=== PATIENT | male | born 1975 | race Caucasian/White ===

== ENCOUNTER 2021-02-05 11:17 | Inpatient (IN) | payer OTHER ==
[2021-02-05 12:56] LABS: BASOPHIL 0.3 % (0-2); EOSINOPHIL 0.2 % (0-5); HCT 45.6 % (42.0-52.0); HGB 15.9 g/dl (13.2-18.0); LYMPHOCYTE 13.5 % (15-48); MCH 34.3 pg (25.0-31.0); MCHC 34.9 g/dL (32.0-36.0); MCV 98.5 fL (78.0-100.0); MONOCYTE 5.9 % (0-12); MPV 8.3 fL (6.0-9.5); NEUTROPHIL 79.8 % (41-80); NRBC 0; PLT 648 K/uL (150-400); RBC 4.63 M/uL (4.70-6.00); RDW 11.9 % (11.5-14.0); WBC 11.8 K/uL (4.0-10.5)
[2021-02-05 13:10] LABS: ALBUMIN 2.6 g/dL (3.4-5.0); BILIRUBIN - TOTAL 0.3 mg/dL (0.2-1.0); BUN/CREAT RATIO (CALC) 8.8 RATIO; CREATININE 0.8 mg/dL (0.67-1.17); GLOBULIN (CALCULATION) 5.4 g/dL
[2021-02-05 13:17] LABS: LACTIC ACID 1.6 mmol/L (0.4-1.9)
[2021-02-06 05:50] LABS: HCT 35.8 % (42.0-52.0); HGB 12.8 g/dl (13.2-18.0); MCH 35.2 pg (25.0-31.0); MCHC 35.8 g/dL (32.0-36.0); MCV 98.4 fL (78.0-100.0); MPV 8.6 fL (6.0-9.5); RBC 3.64 M/uL (4.70-6.00); RDW 11.9 % (11.5-14.0); WBC 14.7 K/uL (4.0-10.5)
[2021-02-06 06:10] LABS: BUN/CREAT RATIO (CALC) 9.4 RATIO; CREATININE 0.85 mg/dL (0.67-1.17); POTASSIUM 3.9 mmol/L (3.5-5.1)
--- NOTE | 2021-02-06 14:01 | NUR ---
02/06/21 Mr. Hernandez lives alone. He is independent in the home and community. Mr. Hernandez works at [employer]. He did not have health coverage or a PCP. The [employer] has enrolled patient in a Medicaid plan. The [facility] company secretary will arrange a PCP appointment. - IV antibiotic treatment will likely be needed following discharge. Mr. Hernandez reports to have transportation. - Mr. Hernandez was educated to the [facility] should his Medicaid . - Mr. Hernandez reports to have been drinking a pint + of bourbon oer day up to 2 weeks ago. He was provided with information re: AA meetings for future reference.
[2021-02-07 08:37] LABS: HCT 35.8 % (42.0-52.0); HGB 12.4 g/dl (13.2-18.0); MCH 34.4 pg (25.0-31.0); MCHC 34.6 g/dL (32.0-36.0); MCV 99.4 fL (78.0-100.0); MPV 8.4 fL (6.0-9.5); RBC 3.6 M/uL (4.70-6.00); RDW 12.1 % (11.5-14.0); WBC 20.4 K/uL (4.0-10.5)
[2021-02-07 08:57] LABS: BUN/CREAT RATIO (CALC) 10.4 RATIO; CREATININE 0.77 mg/dL (0.67-1.17); POTASSIUM 3.8 mmol/L (3.5-5.1)
--- NOTE | 2021-02-07 13:34 | NUR ---
1245 TRANSPOTED BY BED TO SURGERY REPORT GIVEN TO ANGELIQUE
[2021-02-08 04:42] LABS: BASOPHIL 0.3 % (0-2); EOSINOPHIL 0 % (0-5); HCT 39.6 % (42.0-52.0); LYMPHOCYTE 5.1 % (15-48); MCH 34.7 pg (25.0-31.0); MCHC 35.4 g/dL (32.0-36.0); MCV 98.3 fL (78.0-100.0); MONOCYTE 4.3 % (0-12); MPV 8.7 fL (6.0-9.5); NEUTROPHIL 89.4 % (41-80); NRBC 0; PLT 457 K/uL (150-400); RBC 4.03 M/uL (4.70-6.00); RDW 12.2 % (11.5-14.0)
[2021-02-08 04:44] LABS: WBC 23.1 K/uL (4.0-10.5)
[2021-02-08 05:01] LABS: BUN/CREAT RATIO (CALC) 20.2 RATIO; CREATININE 0.99 mg/dL (0.67-1.17); POTASSIUM 4.9 mmol/L (3.5-5.1)
--- NOTE | 2021-02-08 14:39 | NUR ---
02/07/2021 1120 PT HAD A PICC LINE ORDERED, PROCEDURE WAS EXPLAINED TO PT,RISKS AND BENEFITS WERE EXPLAINED TO PT. CONSENT WAS SIGNED. PT'S LEFT UPPER ARM BASILIC VEIN WAS VISUALIZED USING THE [employer] ULTRA SOUND MACHINE . PT WAS THEN PREPPED AND DRAPED IN STERILE MANNER. THE AREA WAS CLEANSED WITH CHLOROPREP. THE AREA WAS NUMBED WITH 1% LIDOCAINE 1 CC. A 21G GUIDE NEEDLE WAS USED. ATTEMPTED TO THREAD THE GUIDE WIRE THROUGH THE GUIDE NEEDLE WITHOUT SUCCESS, THIS WAS ATTEMPTED 2 MORE TIMES IN LEFT UPPER ARM WITHOUT SUCCESS, THE PROCEDURE HAD TO BE D/LEONID DUE TO THE PATIENT BEING TAKEN TO SURGERY. DR. HAJI AWARE OF THIS.
[2021-02-09 06:08] LABS: BASOPHIL 0.2 % (0-2); HCT 32.8 % (42.0-52.0); HGB 11.5 g/dl (13.2-18.0); LYMPHOCYTE 10.2 % (15-48); MCH 34.7 pg (25.0-31.0); MCHC 35.1 g/dL (32.0-36.0); MCV 99.1 fL (78.0-100.0); MONOCYTE 7.2 % (0-12); MPV 8.5 fL (6.0-9.5); NEUTROPHIL 80.7 % (41-80); NRBC 0; PLT 451 K/uL (150-400); RBC 3.31 M/uL (4.70-6.00); RDW 12.4 % (11.5-14.0); WBC 11.9 K/uL (4.0-10.5)
[2021-02-09 06:58] LABS: BUN/CREAT RATIO (CALC) 27.9 RATIO; CREATININE 0.68 mg/dL (0.67-1.17); POTASSIUM 4.4 mmol/L (3.5-5.1)
--- NOTE | 2021-02-10 00:17 | NUR ---
2315 REPORT RECEIVED FROM Brendon NEWELL RN.
--- NOTE | 2021-02-10 03:57 | NUR ---
0336 MORPHINE 30 ML JEWELRY DRILLING MACHINE OPERATOR CARTRIDGE CRACKED AND WASTED WITH Lupis WHITT RN. FANI LOG CHECK SCALER NOTIFIED AND WASTED IN PYXIS. CARTRIDGE SCANNED PRIOR TO WASTING.
[2021-02-10 08:29] LABS: HGB 12.1 g/dl (13.2-18.0); MCH 34.6 pg (25.0-31.0); MCHC 34.6 g/dL (32.0-36.0); MPV 8.2 fL (6.0-9.5); RBC 3.5 M/uL (4.70-6.00); RDW 12.5 % (11.5-14.0); WBC 14.8 K/uL (4.0-10.5)
[2021-02-10 08:51] LABS: BUN/CREAT RATIO (CALC) 22.6 RATIO; CREATININE 0.53 mg/dL (0.67-1.17); POTASSIUM 3.6 mmol/L (3.5-5.1)
--- NOTE | 2021-02-11 11:24 | NUR ---
1124 NG TUBE DC'D AT THIS TIME, PT TOLERATED WELL.
--- NOTE | 2021-02-11 12:30 | NUR ---
1210 PT AMBULATED DOWN SALAZAR WITH WALKER AND STANDBY ASSIST OF 1. TOLERATED WELL. PT IS SITTING IN CHAIR IN HIS ROOM AT THIS TIME.
[2021-02-12 05:43] LABS: BASOPHIL 0.3 % (0-2); HCT 35.9 % (42.0-52.0); HGB 12.3 g/dl (13.2-18.0); LYMPHOCYTE 9.8 % (15-48); MCH 34.2 pg (25.0-31.0); MCHC 34.3 g/dL (32.0-36.0); MCV 99.7 fL (78.0-100.0); MONOCYTE 6.4 % (0-12); MPV 8.3 fL (6.0-9.5); NEUTROPHIL 80.8 % (41-80); NRBC 0; PLT 511 K/uL (150-400); RDW 12.4 % (11.5-14.0); WBC 14.9 K/uL (4.0-10.5)
[2021-02-12 06:03] LABS: ALBUMIN 1.4 g/dL (3.4-5.0); BILIRUBIN - TOTAL 0.5 mg/dL (0.2-1.0); BUN/CREAT RATIO (CALC) 15.8 RATIO; CREATININE 0.57 mg/dL (0.67-1.17); GLOBULIN (CALCULATION) 4.3 g/dL; TOTAL PROTEIN 5.7 g/dL (6.4-8.2)
[2021-02-13 06:21] LABS: BASOPHIL 0.3 % (0-2); EOSINOPHIL 2.9 % (0-5); HCT 34.5 % (42.0-52.0); HGB 11.9 g/dl (13.2-18.0); LYMPHOCYTE 13.9 % (15-48); MCH 34.5 pg (25.0-31.0); MCHC 34.5 g/dL (32.0-36.0); MONOCYTE 7.4 % (0-12); MPV 8.6 fL (6.0-9.5); NRBC 0; PLT 508 K/uL (150-400); RBC 3.45 M/uL (4.70-6.00); RDW 12.6 % (11.5-14.0); WBC 12.1 K/uL (4.0-10.5)
[2021-02-13 06:37] LABS: ALBUMIN 1.3 g/dL (3.4-5.0); BILIRUBIN - TOTAL 0.5 mg/dL (0.2-1.0); BUN/CREAT RATIO (CALC) 11.7 RATIO; CREATININE 0.6 mg/dL (0.67-1.17); POTASSIUM 3.8 mmol/L (3.5-5.1); TOTAL PROTEIN 5.3 g/dL (6.4-8.2)
[2021-02-14 09:04] LABS: HCT 35.5 % (42.0-52.0); HGB 12.3 g/dl (13.2-18.0); MCH 34.7 pg (25.0-31.0); MCHC 34.6 g/dL (32.0-36.0); MCV 100.3 fL (78.0-100.0); MPV 8.2 fL (6.0-9.5); RBC 3.54 M/uL (4.70-6.00); RDW 12.5 % (11.5-14.0); WBC 10.7 K/uL (4.0-10.5)
[2021-02-14 09:32] LABS: BUN/CREAT RATIO (CALC) 8.5 RATIO; CREATININE 0.59 mg/dL (0.67-1.17); POTASSIUM 3.9 mmol/L (3.5-5.1)
--- NOTE | 2021-02-14 11:29 | NUR ---
RD visited with patient/family member for education re: increased energy/protein needs; sources of protein; ONS; and importance of dietary fiber . Offered EFY menu choices to improve preferences and intake. Educational materials offered for d/c
--- NOTE | 2021-02-14 13:14 | NUR ---
02/14/21 Mr. Hernandez will be discharge today. Discussion took place with him and his mother re: need for HH or setting [facility]. Mr. Hernandez believes he can care for his colostomy without further instruction. - Mr. Hernandez is concerned about being able to pay his house payment since he will be off from work. His mother reports to be able to assist financially for a brief period of time. - Mr. Hernandez was advised to contact Dr. Cuenca if he has problems changing the colostomy. - Mr. Cuenca was advised to contact his lender re: house payments. He was educated to [facility] and [facility]. - He was encouraged to seek counseling as needed. A brochure listing counselors was provided. - A report was given to MS ANDREINA Massey.
[2021-02-15 08:50] LABS: HCT 38.1 % (42.0-52.0); MCH 34.7 pg (25.0-31.0); MCHC 34.1 g/dL (32.0-36.0); MCV 101.6 fL (78.0-100.0); MPV 8.7 fL (6.0-9.5); RBC 3.75 M/uL (4.70-6.00); RDW 12.8 % (11.5-14.0); WBC 12.3 K/uL (4.0-10.5)
[2021-02-15 09:09] LABS: BUN/CREAT RATIO (CALC) 9.8 RATIO; CREATININE 0.61 mg/dL (0.67-1.17); POTASSIUM 4.6 mmol/L (3.5-5.1)
--- NOTE | 2021-02-15 10:49 | NUR ---
02/15/21 Dr. Cuenca requested services. Patient will go home with a DELANEY drain as well as need education for colostomy care. [facility] accepted patient's insurance. Affliation understood. [facility] will order supplies; 2 days of supplies will be sent home with patient. - Report given to MS ANDREINA Franklin.
--- NOTE | 2021-02-15 12:28 | NUR ---
Patient was visited prior to d/c this date. Patient verbalized information presented re: nutrition importance re: protein, fluids, fiber needs. enc ongoing ONS use when d/c .
[2021-02-15] MEDS ORDERED: PERCOCET 5-3251 EACH PO (13:51)
[2021-02-15] MEDS ORDERED: AUGMENTIN 875-1 EACH PO (13:51)
[2021-05-09] MEDS ORDERED: CLARITIN10 MG PO (09:28)
== END 2021-02-15 15:20 | disposition home health service (06) | DRG 853 ==
LOC: FER 11:17 → FTCU 14:39 → FMS 14:39 → FTCU 02-07 07:42 → FMS 02-09 08:44
PROVIDERS: Allergy & Immunology Allergy; Emergency Medicine; Student in an Organized Health Care Education/Training Program; ADMIT Hospitalist
PROC: 0D1B0Z4 Bypass Ileum to Cutaneous, Open Approach (ICD-10-PCS; principal; 2021-02-07 13:00)
PROC: 0DTN0ZZ Resection of Sigmoid Colon, Open Approach (ICD-10-PCS; principal; 2021-02-07 13:00)
PROC: 0DNW0ZZ Release Peritoneum, Open Approach (ICD-10-PCS; principal; 2021-02-07 13:00)
PROC: 0DTJ0ZZ Resection of Appendix, Open Approach (ICD-10-PCS; principal; 2021-02-07 13:00)
DX: A41.51 Sepsis due to Escherichia coli [E. coli] (principal); K65.0 Generalized (acute) peritonitis; K57.20 Diverticulitis of large intestine with perforation and abscess without bleeding; K56.51 Intestinal adhesions [bands], with partial obstruction; K56.7 Ileus, unspecified; E46 Unspecified protein-calorie malnutrition; F10.10 Alcohol abuse, uncomplicated; F17.210 Nicotine dependence, cigarettes, uncomplicated; K64.9 Unspecified hemorrhoids; R00.0 Tachycardia, unspecified; E88.09 Other disorders of plasma-protein metabolism, not elsewhere classified; Z20.822 Contact with and (suspected) exposure to COVID-19; K44.9 Diaphragmatic hernia without obstruction or gangrene
CPT/HCPCS: 36415; 80048; 80053; 82570; 83605; 83690; 85025; 87040; 87070; 87075; 87077; 87186; 87205; 93005; 97110; 97161; 97530-GP; C1751; C9113; J1170; J1335; J1642; J1650; J2250; J2270; J2370; J2405; J2543; J2550; J2704; J2710; J3010; J3411; J7030; J7120; Q0164; Q9967; U0002

== ENCOUNTER → 2021-05-12 | Day surgery (SDC) | payer OTHER ==
[~2021-05-12] VITALS: Ht 175.3 cm; Wt 77.6 kg
[~2021-05-12] MED LIST: AUGMENTIN 875-1 EACH PO; CLARITIN10 MG PO; PERCOCET 5-3251 EACH PO
== END | disposition home or self-care (01) ==
LOC: FAS 08:49
DX: K62.1 Rectal polyp (principal); K94.19 Other complications of enterostomy; K63.89 Other specified diseases of intestine; K64.4 Residual hemorrhoidal skin tags; K43.5 Parastomal hernia without obstruction or gangrene; F41.9 Anxiety disorder, unspecified; F32.9 Major depressive disorder, single episode, unspecified; F17.210 Nicotine dependence, cigarettes, uncomplicated; Z87.19 Personal history of other diseases of the digestive system
CPT/HCPCS: J2250; J2704; J7120

== ENCOUNTER 2021-10-18 06:48 | Inpatient (IN) | payer OTHER ==
[~2021-10-18] VITALS: Ht 175 cm; Wt 100.3 kg
[~2021-10-18 06:48] MED LIST changes: +AFRIN15 M1
[2021-10-18 08:09] LABS: ALBUMIN 3.3 g/dL (3.4-5.0); BILIRUBIN - TOTAL 1.4 mg/dL (0.2-1.0); BUN/CREAT RATIO (CALC) 12.9 RATIO; CREATININE 0.7 mg/dL (0.67-1.17); GLOBULIN (CALCULATION) 4.2 g/dL; POTASSIUM 3.6 mmol/L (3.5-5.1); TOTAL PROTEIN 7.5 g/dL (6.4-8.2)
[2021-10-18 08:24] LABS: HGB 14.6 g/dl (13.2-18.0); MCH 38.1 pg (25.0-31.0); MCHC 37.4 g/dL (32.0-36.0); MCV 101.8 fL (78.0-100.0); MPV 10.3 fL (6.0-9.5); RBC 3.83 M/uL (4.70-6.00); RDW 13.9 % (11.5-14.0); WBC 5.4 K/uL (4.0-10.5)
[2021-10-18] MEDS ORDERED: LISINOPRIL10 MG PO (18:41)
[2021-10-19 05:05] LABS: HCT 36.2 % (42.0-52.0); HGB 13.1 g/dl (13.2-18.0); MCH 38.3 pg (25.0-31.0); MCHC 36.2 g/dL (32.0-36.0); MPV 10.3 fL (6.0-9.5); RBC 3.42 M/uL (4.70-6.00); RDW 14.3 % (11.5-14.0); WBC 7.6 K/uL (4.0-10.5)
[2021-10-19 05:10] LABS: MCV 105.8 fL (78.0-100.0)
[2021-10-19 05:18] LABS: INR 0.99 (0.9-1.2); PROTHROMBIN TIME 12.5 SECONDS (11.8-13.4)
[2021-10-19 05:55] LABS: ALBUMIN 2.8 g/dL (3.4-5.0); BILIRUBIN - TOTAL 1.4 mg/dL (0.2-1.0); BUN/CREAT RATIO (CALC) 9.5 RATIO; CREATININE 0.84 mg/dL (0.67-1.17); GLOBULIN (CALCULATION) 3.8 g/dL; TOTAL PROTEIN 6.6 g/dL (6.4-8.2)
[2021-10-20 04:47] LABS: BASOPHIL 0.4 % (0-2); EOSINOPHIL 0.2 % (0-5); HCT 36.7 % (42.0-52.0); HGB 13.2 g/dl (13.2-18.0); LYMPHOCYTE 19.1 % (15-48); MCH 37.6 pg (25.0-31.0); MCV 104.6 fL (78.0-100.0); MONOCYTE 8.1 % (0-12); MPV 10.7 fL (6.0-9.5); NEUTROPHIL 71.8 % (41-80); NRBC 0; PLT 112 K/uL (150-400); RBC 3.51 M/uL (4.70-6.00); RDW 13.7 % (11.5-14.0); WBC 5.7 K/uL (4.0-10.5)
[2021-10-20 04:59] LABS: ALBUMIN 2.9 g/dL (3.4-5.0); BILIRUBIN - TOTAL 1.4 mg/dL (0.2-1.0); BUN/CREAT RATIO (CALC) 9.2 RATIO; CREATININE 0.76 mg/dL (0.67-1.17); GLOBULIN (CALCULATION) 4.1 g/dL; MAGNESIUM 2.1 mg/dL (1.8-2.4); POTASSIUM 3.9 mmol/L (3.5-5.1)
--- NOTE | 2021-10-21 00:32 | NUR ---
nightshift nurse seen that flagyl abd another antobiotic was not given 2-3 days ago, left on EMAR
[2021-10-21 07:12] LABS: BASOPHIL 0.4 % (0-2); EOSINOPHIL 1.3 % (0-5); HCT 32.7 % (42.0-52.0); HGB 11.8 g/dl (13.2-18.0); LYMPHOCYTE 23.7 % (15-48); MCH 37.5 pg (25.0-31.0); MCHC 36.1 g/dL (32.0-36.0); MCV 103.8 fL (78.0-100.0); MONOCYTE 17.2 % (0-12); MPV 10.3 fL (6.0-9.5); NRBC 0; PLT 119 K/uL (150-400); RBC 3.15 M/uL (4.70-6.00); RDW 13.5 % (11.5-14.0); WBC 4.6 K/uL (4.0-10.5)
[2021-10-21 07:40] LABS: ALBUMIN 2.2 g/dL (3.4-5.0); BILIRUBIN - TOTAL 1.4 mg/dL (0.2-1.0); BUN/CREAT RATIO (CALC) 12.2 RATIO; CREATININE 0.82 mg/dL (0.67-1.17); GLOBULIN (CALCULATION) 3.6 g/dL; MAGNESIUM 2.1 mg/dL (1.8-2.4); POTASSIUM 3.8 mmol/L (3.5-5.1); TOTAL PROTEIN 5.8 g/dL (6.4-8.2)
[2021-10-22 06:43] LABS: BASOPHIL 0.6 % (0-2); EOSINOPHIL 2.1 % (0-5); HCT 33.8 % (42.0-52.0); HGB 12.2 g/dl (13.2-18.0); LYMPHOCYTE 27.6 % (15-48); MCH 37.7 pg (25.0-31.0); MCHC 36.1 g/dL (32.0-36.0); MCV 104.3 fL (78.0-100.0); MONOCYTE 26.1 % (0-12); MPV 10.3 fL (6.0-9.5); NEUTROPHIL 43.2 % (41-80); NRBC 0; PLT 191 K/uL (150-400); RBC 3.24 M/uL (4.70-6.00); RDW 13.7 % (11.5-14.0); WBC 4.8 K/uL (4.0-10.5)
[2021-10-22 07:00] LABS: ALBUMIN 2.2 g/dL (3.4-5.0); BILIRUBIN - TOTAL 1.5 mg/dL (0.2-1.0); BUN/CREAT RATIO (CALC) 11.1 RATIO; CREATININE 0.81 mg/dL (0.67-1.17); GLOBULIN (CALCULATION) 3.9 g/dL; POTASSIUM 3.3 mmol/L (3.5-5.1); TOTAL PROTEIN 6.1 g/dL (6.4-8.2)
[2021-10-23 07:22] LABS: ALBUMIN 2.4 g/dL (3.4-5.0); BILIRUBIN - TOTAL 1.3 mg/dL (0.2-1.0); BUN/CREAT RATIO (CALC) 11.5 RATIO; CREATININE 0.78 mg/dL (0.67-1.17); POTASSIUM 3.3 mmol/L (3.5-5.1); TOTAL PROTEIN 6.4 g/dL (6.4-8.2)
[2021-10-24 06:49] LABS: BASOPHIL 0.5 % (0-2); EOSINOPHIL 1.2 % (0-5); HCT 33.9 % (42.0-52.0); HGB 12.5 g/dl (13.2-18.0); LYMPHOCYTE 25.9 % (15-48); MCH 37.8 pg (25.0-31.0); MCHC 36.9 g/dL (32.0-36.0); MCV 102.4 fL (78.0-100.0); MPV 9.7 fL (6.0-9.5); NEUTROPHIL 41.3 % (41-80); NRBC 0; PLT 333 K/uL (150-400); RBC 3.31 M/uL (4.70-6.00); WBC 5.7 K/uL (4.0-10.5)
[2021-10-24 07:41] LABS: BUN/CREAT RATIO (CALC) 10.3 RATIO; CREATININE 0.68 mg/dL (0.67-1.17); POTASSIUM 3.1 mmol/L (3.5-5.1)
[2021-10-24 09:58] LABS: MAGNESIUM 2.2 mg/dL (1.8-2.4); PHOSPHORUS 3.1 mg/dL (2.6-4.7)
[2021-10-24] MEDS ORDERED: OXY-IR 5MG5 MG PO (13:09)
[2021-10-24] MEDS ORDERED: ROBAXIN500 MG PO (15:07)
== END 2021-10-24 17:41 | disposition home or self-care (01) | DRG 330 ==
LOC: FSDC 06:48 → FTCU 06:48 → FMS 06:48 → FTCU 11:16 → FMS 10-20 14:35
PROVIDERS: Allergy & Immunology Allergy; ADMIT Student in an Organized Health Care Education/Training Program
PROC: 0WQF0ZZ Repair Abdominal Wall, Open Approach (ICD-10-PCS; 2021-10-18)
PROC: 0DBB0ZZ Excision of Ileum, Open Approach (ICD-10-PCS; principal; 2021-10-18 07:45)
DX: Z43.2 Encounter for attention to ileostomy (principal); K91.89 Other postprocedural complications and disorders of digestive system; K56.7 Ileus, unspecified; F10.139 Alcohol abuse with withdrawal, unspecified; E87.6 Hypokalemia; I10 Essential (primary) hypertension; K70.10 Alcoholic hepatitis without ascites; K43.5 Parastomal hernia without obstruction or gangrene; Z82.49 Family history of ischemic heart disease and other diseases of the circulatory system; F32.A Depression, unspecified; F41.9 Anxiety disorder, unspecified; F17.210 Nicotine dependence, cigarettes, uncomplicated
CPT/HCPCS: 36415; 74019; 80053; 83605; 83735; 84100; 85025; 85610; 86850; 86900; 86901; 87088; 97162; 97166; 97530-GP; 97535; J0690; J1170; J1644; J1650; J1885; J2060; J2250; J2405; J2543; J2550; J2704; J2710; J2765; J3010; J3411; J3475; J7120

== ENCOUNTER 2021-11-15 14:50 | Inpatient (IN) | payer OTHER ==
[~2021-11-15] VITALS: Ht 175.3 cm; Wt 90.3 kg
[~2021-11-15 14:50] MED LIST changes: +LISINOPRIL10 MG PO; +OXY-IR 5MG5 MG PO; +ROBAXIN500 MG PO
[2021-11-15 17:02] LABS: BASOPHIL 0.4 % (0-2); EOSINOPHIL 0.2 % (0-5); HGB 11.5 g/dl (13.2-18.0); LYMPHOCYTE 22.7 % (15-48); MCH 36.3 pg (25.0-31.0); MCHC 35.9 g/dL (32.0-36.0); MCV 100.9 fL (78.0-100.0); MONOCYTE 9.1 % (0-12); MPV 10.2 fL (6.0-9.5); NEUTROPHIL 67.2 % (41-80); NRBC 0; PLT 133 K/uL (150-400); RBC 3.17 M/uL (4.70-6.00); RDW 14.8 % (11.5-14.0); WBC 5.1 K/uL (4.0-10.5)
[2021-11-15 17:12] LABS: ALBUMIN 2.7 g/dL (3.4-5.0); BUN/CREAT RATIO (CALC) 11.6 RATIO; C-REACTIVE PROTEIN 1.1 mg/dL (<=0.90); CREATININE 0.69 mg/dL (0.67-1.17); GLOBULIN (CALCULATION) 4.1 g/dL; MAGNESIUM 1.9 mg/dL (1.8-2.4); PHOSPHORUS 3.4 mg/dL (2.6-4.7); POTASSIUM 2.8 mmol/L (3.5-5.1); TOTAL PROTEIN 6.8 g/dL (6.4-8.2)
[2021-11-15 17:24] LABS: CORONAVIRUS 2019 SARS-COV-2 NEGATIVE (NEGATIVE); INFLUENZA A NAA NEGATIVE (NEGATIVE)
[2021-11-16 02:56] LABS: BILIRUBIN 2+ mg/dL (NEGATIVE); BLOOD NEGATIVE Ery/uL (NEGATIVE); CLARITY CLEAR (CLEAR); COLOR YELLOW (YELLOW); GLUCOSE (U) NORMAL (NORMAL); LEUKOCYTES NEGATIVE Leu/uL (NEGATIVE); NITRITE POSITIVE (NEGATIVE); PROTEIN 1+ mg/dL (NEGATIVE); SPECIFIC GRAVITY 1.025 (1.001-1.030); pH 6.5 (5.0-9.0)
[2021-11-16 03:05] LABS: TRANSITIONAL EPITHELIAL CELLS RARE
[2021-11-16 03:06] LABS: BACTERIA TRACE; MUCOUS MODERATE; RENAL EPITHELIAL CELLS RARE; URINARY WBC RARE
[2021-11-16 06:07] LABS: BASOPHIL 0.2 % (0-2); EOSINOPHIL 0.2 % (0-5); HCT 33.1 % (42.0-52.0); LYMPHOCYTE 25.8 % (15-48); MCH 36.4 pg (25.0-31.0); MCHC 36.3 g/dL (32.0-36.0); MCV 100.3 fL (78.0-100.0); MONOCYTE 11.8 % (0-12); NEUTROPHIL 61.6 % (41-80); NRBC 0.4; PLT 125 K/uL (150-400); RDW 14.6 % (11.5-14.0); WBC 5.1 K/uL (4.0-10.5)
[2021-11-16 06:12] LABS: INR 1.03 (0.9-1.2); PROTHROMBIN TIME 12.9 SECONDS (11.8-13.4); PTT 27.8 SECONDS (24.4-34.7)
[2021-11-16 06:27] LABS: ALBUMIN 2.3 g/dL (3.4-5.0); BILIRUBIN - TOTAL 0.9 mg/dL (0.2-1.0); BUN/CREAT RATIO (CALC) 11.4 RATIO; CREATININE 0.7 mg/dL (0.67-1.17); PHOSPHORUS 2.4 mg/dL (2.6-4.7); POTASSIUM 2.5 mmol/L (3.5-5.1); TOTAL PROTEIN 6.3 g/dL (6.4-8.2)
[2021-11-16 06:43] LABS: MAGNESIUM 1.3 mg/dL (1.8-2.4)
[2021-11-17 06:16] LABS: BASOPHIL 0.2 % (0-2); EOSINOPHIL 0.4 % (0-5); HCT 33.7 % (42.0-52.0); HGB 11.9 g/dl (13.2-18.0); LYMPHOCYTE 35.5 % (15-48); MCH 35.6 pg (25.0-31.0); MCHC 35.3 g/dL (32.0-36.0); MCV 100.9 fL (78.0-100.0); MONOCYTE 8.5 % (0-12); MPV 10.4 fL (6.0-9.5); NRBC 0; PLT 155 K/uL (150-400); RBC 3.34 M/uL (4.70-6.00); RDW 14.4 % (11.5-14.0); RETICULOCYTE COUNT 2.5 % (1.0-2.0); WBC 4.7 K/uL (4.0-10.5)
[2021-11-17 07:06] LABS: ALBUMIN 2.2 g/dL (3.4-5.0); ALKALINE PHOSHATASE 196 U/L (46-116); ALT 64 U/L (16-63); AST 119 U/L (15-37); BILIRUBIN - TOTAL 0.8 mg/dL (0.2-1.0); BUN 3 mg/dL (7-18); BUN/CREAT RATIO (CALC) 4.3 RATIO; CHLORIDE 100 mmol/L (98-107); CO2 (BICARBONATE) 30 mmol/L (21-32); CREATININE 0.69 mg/dL (0.67-1.17); GLOBULIN (CALCULATION) 4.2 g/dL; GLUCOSE 104 mg/dL (74-106); LIPASE 393 U/L (73-393); MAGNESIUM 1.8 mg/dL (1.8-2.4); PHOSPHORUS 2.7 mg/dL (2.6-4.7); POTASSIUM 3.4 mmol/L (3.5-5.1); TOTAL PROTEIN 6.4 g/dL (6.4-8.2)
[2021-11-17] MEDS ORDERED: AUGMENTIN 875-1 EACH PO (17:33)
== END 2021-11-17 18:30 | disposition home or self-care (01) | DRG 897 ==
LOC: FTCU 14:50
PROVIDERS: Nurse Practitioner; ADMIT Internal Medicine
PROC: HZ2ZZZZ Detoxification Services for Substance Abuse Treatment (ICD-10-PCS; principal; 2021-11-15)
DX: F10.139 Alcohol abuse with withdrawal, unspecified (principal); E87.2 Acidosis; F10.129 Alcohol abuse with intoxication, unspecified; Z20.822 Contact with and (suspected) exposure to COVID-19; K52.9 Noninfective gastroenteritis and colitis, unspecified; Y90.6 Blood alcohol level of 120-199 mg/100 ml; R10.9 Unspecified abdominal pain; F17.210 Nicotine dependence, cigarettes, uncomplicated; R74.01 Elevation of levels of liver transaminase levels; E87.6 Hypokalemia; E83.51 Hypocalcemia; E86.0 Dehydration; Z90.49 Acquired absence of other specified parts of digestive tract; Z98.890 Other specified postprocedural states
CPT/HCPCS: 36415; 70450; 71045; 80053; 81001; 82550; 82607; 83036; 83540; 83550; 83605; 83690; 83735; 84100; 84145; 85025; 85610; 85730; 86140; 87040; 87045; 87046; 87205; 87449; 93005; 94010; G0480; J1170; J1650; J2543; J2560; J3360; J3411; J3475; J7120; Q9967; U0002

== ENCOUNTER 2022-01-30 05:19 | Emergency (ER) | payer OTHER ==
[2022-01-30 05:38] LABS: BASOPHIL 0.1 % (0-2); EOSINOPHIL 0.1 % (0-5); HCT 44.2 % (42.0-52.0); HGB 15.9 g/dl (13.2-18.0); LYMPHOCYTE 22.7 % (15-48); MCH 37.2 pg (25.0-31.0); MCV 103.5 fL (78.0-100.0); MONOCYTE 6.9 % (0-12); MPV 11.4 fL (6.0-9.5); NEUTROPHIL 69.9 % (41-80); NRBC 0; PLT 106 K/uL (150-400); RBC 4.27 M/uL (4.70-6.00); RDW 17.5 % (11.5-14.0); WBC 7.1 K/uL (4.0-10.5)
[2022-01-30 06:11] LABS: ALBUMIN 2.9 g/dL (3.4-5.0); ALKALINE PHOSHATASE 232 U/L (46-116); ALT 191 U/L (16-63); AST 341 U/L (15-37); BILIRUBIN - TOTAL 1.1 mg/dL (0.2-1.0); BUN 14 mg/dL (7-18); BUN/CREAT RATIO (CALC) 20.3 RATIO; CHLORIDE 97 mmol/L (98-107); CO2 (BICARBONATE) 22 mmol/L (21-32); CREATININE 0.69 mg/dL (0.67-1.17); GLOBULIN (CALCULATION) 5.1 g/dL; GLUCOSE 108 mg/dL (74-106); MAGNESIUM 1.8 mg/dL (1.8-2.4); POTASSIUM 3.1 mmol/L (3.5-5.1)
[2022-01-30 07:28] LABS: BILIRUBIN 2+ mg/dL (NEGATIVE); BLOOD 1+ Ery/uL (NEGATIVE); CLARITY CLEAR (CLEAR); GLUCOSE (U) NORMAL (NORMAL); LEUKOCYTES NEGATIVE Leu/uL (NEGATIVE); NITRITE POSITIVE (NEGATIVE); PROTEIN 1+ mg/dL (NEGATIVE)
[2022-01-30 07:37] LABS: BARBITURATES NEGATIVE (NEGATIVE); ECSTASY (MDMA) NEGATIVE (NEGATIVE); MARIJUANA (THC) POSITIVE (NEGATIVE); METHADONE NEGATIVE (NEGATIVE); OPIATES NEGATIVE (NEGATIVE)
[2022-01-30 07:38] LABS: AMPHETAMINES NEGATIVE (NEGATIVE); OXYCODONE NEGATIVE (NEGATIVE)
[2022-01-30 07:39] LABS: COLOR AMBER (YELLOW)
[2022-01-30 07:43] LABS: BACTERIA TRACE; MUCOUS MODERATE; SQUAMOUS EPITHELIAL CELLS RARE
== END 2022-01-30 08:46 | disposition home or self-care (01) ==
LOC: FER 05:19
PROVIDERS: Emergency Medicine
DX: F10.239 Alcohol dependence with withdrawal, unspecified (principal); I10 Essential (primary) hypertension; F17.200 Nicotine dependence, unspecified, uncomplicated; Z28.310 Unvaccinated for COVID-19
CPT/HCPCS: 36415; 71045; 80053; 80305; 81001; 83605; 83735; 84145; 84484; 85025; 87040; 87088; 93005; G0480; J2060; J3411; J3475; J7120

== ENCOUNTER 2022-04-10 18:49 | Emergency (ER) | payer OTHER ==
[2022-04-10 20:33] LABS: BASOPHIL 0.6 % (0-2); EOSINOPHIL 0.3 % (0-5); HGB 14.7 g/dl (13.2-18.0); LYMPHOCYTE 35.6 % (15-48); MCH 37.1 pg (25.0-31.0); MCHC 36.8 g/dL (32.0-36.0); MONOCYTE 10.6 % (0-12); MPV 10.6 fL (6.0-9.5); NEUTROPHIL 52.6 % (41-80); NRBC 0.8; PLT 162 K/uL (150-400); RBC 3.96 M/uL (4.70-6.00); RDW 15.3 % (11.5-14.0); WBC 6.6 K/uL (4.0-10.5)
[2022-04-10 20:40] LABS: ALBUMIN 3.8 g/dL (3.4-5.0); ALKALINE PHOSHATASE 106 U/L (46-116); ALT 53 U/L (16-63); AST 68 U/L (15-37); BILIRUBIN - TOTAL 0.7 mg/dL (0.2-1.0); BUN 19 mg/dL (7-18); CHLORIDE 93 mmol/L (98-107); CO2 (BICARBONATE) 29 mmol/L (21-32); CREATININE 0.76 mg/dL (0.67-1.17); GLOBULIN (CALCULATION) 4.5 g/dL; GLUCOSE 146 mg/dL (74-106); POTASSIUM 3.3 mmol/L (3.5-5.1); TOTAL PROTEIN 8.3 g/dL (6.4-8.2)
[2022-04-10] MEDS ORDERED: DIAZEPAM 5MG TAB5 MG PO (23:10)
== END 2022-04-10 23:43 | disposition home or self-care (01) ==
LOC: FER 18:49
PROVIDERS: Emergency Medicine
DX: F10.139 Alcohol abuse with withdrawal, unspecified (principal); Z28.310 Unvaccinated for COVID-19; Y90.0 Blood alcohol level of less than 20 mg/100 ml
CPT/HCPCS: 36415; 71045; 80053; 84484; 85025; 93005; G0480; J3411; J3475; J7120

== ENCOUNTER 2022-04-11 01:02 | Emergency (ER) | payer OTHER ==
[~2022-04-11 01:02] MED LIST changes: +DIAZEPAM 5MG TAB5 MG PO
== END 2022-04-11 14:28 | disposition home or self-care (01) ==
LOC: FER 01:02
DX: F10.239 Alcohol dependence with withdrawal, unspecified (principal); F17.200 Nicotine dependence, unspecified, uncomplicated; Z20.822 Contact with and (suspected) exposure to COVID-19
CPT/HCPCS: 36415; 71275; 85379; 96372; J2060; J2560; J7030; J7120; Q9967; U0002